=== PATIENT | male | born 1940 | race Asian ===

== ENCOUNTER 2016-08-24 14:03 | Emergency (ER) | payer SELFPAY ==
--- NOTE | 2016-08-24 15:20 | EDPHY ---
H & P Stated Complaint: Resolving edema in lower legs,hands,face since 08/22 after long flight Time Seen by Provider: 08/24/16 15:06 HPI/ROS: CHIEF COMPLAINT: Edema HISTORY OF PRESENT ILLNESS: Patient is a 68-year-old man visiting from [facility] complaining of diffuse edema. Took him for 3 days to fly here with his daughter who is in the room with him. They state that after arriving he had swelling in his legs as well as cramps. All below the knee. No knee pain. Also swelling his eyelids and hand. He does have a history of rheumatoid arthritis. He denies any history of cardiac, liver or renal disease. No fevers. No increased salt intake. He denies shortness of breath or chest pain. He and his daughter states that the swelling has practically resolved and that he has been urinating about 12 times each night and that the edema is decreasing. REVIEW OF SYSTEMS: Constitutional: denies: chills, fever, recent illness, recent injury EENTM: denies: blurred vision, double vision, nose congestion Respiratory: denies: cough, shortness of breath Cardiac: denies: chest pain, irregular heart rate, lightheadedness, palpitations Gastrointestinal/Abdominal: denies: abdominal pain, diarrhea, nausea, vomiting, blood streaked stools Genitourinary: denies: dysuria, frequency, hematuria, pain Musculoskeletal: denies: joint pain, muscle pain Skin: denies: lesions, rash, jaundice, bruising Neurological: denies: headache, numbness, paresthesia, tingling, dizziness, weakness Hematologic/Lymphatic: denies: blood clots, easy bleeding, easy bruising Immunologic/allergic: denies: HIV/AIDS, transplant EXAM: GENERAL: Well-appearing, well-nourished and in no acute distress. HEAD: Atraumatic, normocephalic. EYES: Slight swelling and edema of upper and lower eyelids. Pupils equal round and reactive to light, extraocular movements intact, sclera anicteric, conjunctiva are normal. ENT: TMs normal, nares patent, oropharynx clear without exudates. Moist mucous membranes. NECK: Normal range of motion, supple without lymphadenopathy or JVD. LUNGS: Breath sounds clear to auscultation bilaterally and equal. No wheezes rales or rhonchi. HEART: Regular rate and rhythm without murmurs, rubs or gallops. ABDOMEN: Soft, nontender, normoactive bowel sounds. No guarding, no rebound. No masses appreciated. BACK: No CVA tenderness, no spinal tenderness, step-offs or deformities EXTREMITIES: 2+ edema in lower extremities, no calf pain or tenderness. Mild swelling and fingers and hands. Normal range of motion. NEUROLOGICAL: Cranial nerves II through XII grossly intact. Normal speech, normal gait. 5/5 strength, normal movement in all extremities, normal sensation PSYCH: Normal mood, normal affect. SKIN: Warm, dry, normal turgor, no visible rashes or lesions. Source: Patient, Family Exam Limitations: No limitations - Personal History Current Tetanus Diphtheria and Acellular Pertussis (TDAP): Yes - Medical/Surgical History Hx Asthma: No Hx Chronic Respiratory Disease: No Hx Diabetes: No Hx Cardiac Disease: No Hx Renal Disease: No Hx Cirrhosis: No Hx Alcoholism: No - Family History Significant Family History: No pertinent family hx - Social History Smoking Status: Never smoked Alcohol Use: Sober Drug Use: None Constitutional: Initial Vital Signs Temperature (C) 36.9 C 08/24/16 14:10 Heart Rate 71 08/24/16 14:10 Respiratory Rate 18 08/24/16 14:10 Blood Pressure 164/96 H 08/24/16 14:10 O2 Sat (%) 98 08/24/16 14:10 O2 Delivery Mode Room Air Allergies/Adverse Reactions: No Known Allergies Allergy (Unverified 08/24/16 14:16) Home Medications: Medication Instructions Recorded NK [No Known Home Meds] 08/24/16 Medical Decision Making - Diagnostics EKG Interpretation: An EKG obtained and was read and documented in trace view. Please see trace view for full reading and report. Sinus rhythm, borderline LVH with repolarization, 1 mm in lead V2 only, Imaging Results: Imaging Impressions Chest X-Ray 08/24/16 15:17 Impression: COPD/emphysema. No source for extremity swelling identified Extremity Venous Study 08/24/16 15:18 Impression: No deep venous thrombosis bilateral legs. Findings and recommendations discussed with Emergency Department physician, KASSANDRA KEARNS at 17:19 hour, 08/24/2016. Final report concurs with initial preliminary interpretation. Imaging: Discussed imaging studies w/ square dance caller Radiologist ED Course/Re-evaluation: The the patient's EKG shows possible early signs of ventricular hypertrophy with some repolarization abnormality. He does not meet STEMI criteria and the patient is symptom free as far as chest pain or shortness of breath. 4:30 p.m. we discussed the lab and x-ray results. Patient and family are reassured. I recommended they follow up with a doctor here to have his BNP Re checked. I suspect he was simply edematous from immobility. He does not appear to have cardiomegaly on chest x-ray. He is not short of breath or having chest pain. He and his family declined further workup or testing at this time. 4:35 p.m. the patient's daughter is very involved. She is asking if we could check the patient's PSA. We will defer this to the clinic. She is also asking that we check his urinalysis. He has no dysuria Differential Diagnosis: Partial list of the Differential diagnosis considered include but were not limited to; renal disease, liver disease, cardiac disease, in mobility, increased salt intake, DVT and although unlikely based on the history and physical exam, I also considered infection, lymphoma. I discussed these differential diagnoses and the plan with the patient as well as the usual and expected course. The patient understands that the diagnosis is provisional and that in medicine we are not always correct and that further workup is often warranted. Usual and customary warnings were given. All of the patient's questions were answered. The patient was instructed to return to the emergency department should the symptoms at all worsen or return, otherwise to followup with the physician as we discussed. - Data Points Laboratory Results: Laboratory Results 08/24/16 15:30 08/24/16 15:30 08/24/16 08/24/16 08/24/16 16:40 15:30 15:30 WBC 5.51 10^3/uL 10^3/uL (3.80-9.50) RBC 3.64 10^6/uL L 10^6/uL (4.40-6.38) Hgb 11.3 g/dL L g/dL (13.7-17.5) Hct 33.4 % L % (40.0-51.0) MCV 91.8 fL fL (81.5-99.8) MCH 31.0 pg pg (27.9-34.1) MCHC 33.8 g/dL g/dL (32.4-36.7) RDW 13.6 % % (11.5-15.2) Plt Count 185 10^3/uL 10^3/uL (150-400) MPV 9.0 fL fL (8.7-11.7) Neut % (Auto) 63.2 % % (39.3-74.2) Lymph % (Auto) 21.6 % % (15.0-45.0) [place] % (Auto) 10.5 % % (4.5-13.0) Eos % (Auto) 3.8 % % (0.6-7.6) Baso % (Auto) 0.7 % % (0.3-1.7) Nucleat RBC Rel Count 0.0 % % (0.0-0.2) Absolute Neuts (auto) 3.48 10^3/uL 10^3/uL (1.70-6.50) Absolute Lymphs (auto) 1.19 10^3/uL 10^3/uL (1.00-3.00) Absolute Monos (auto) 0.58 10^3/uL 10^3/uL (0.30-0.80) Absolute Eos (auto) 0.21 10^3/uL 10^3/uL (0.03-0.40) Absolute Basos (auto) 0.04 10^3/uL 10^3/uL (0.02-0.10) Absolute Nucleated RBC 0.00 10^3/uL 10^3/uL (0-0.01) Immature Gran % 0.2 % % (0.0-1.1) Immature Gran # 0.01 10^3/uL 10^3/uL (0.00-0.10) Sodium 141 mEq/L mEq/L (134-144) Potassium 3.8 mEq/L mEq/L (3.5-5.2) Chloride 102 mEq/L mEq/L (97-110) Carbon Dioxide 27 mEq/l mEq/l (22-31) Anion Gap 12 mEq/L mEq/L (8-16) BUN 26 mg/dL H mg/dL (7-23) Creatinine 1.2 mg/dL mg/dL (0.7-1.3) Estimated GFR 59 Glucose 93 mg/dL mg/dL (70-100) Calcium 9.0 mg/dL mg/dL (8.5-10.4) Total Bilirubin 0.8 mg/dL mg/dL (0.1-1.4) Conjugated Bilirubin 0.3 mg/dL mg/dL (0.0-0.5) Unconjugated Bilirubin 0.5 mg/dL mg/dL (0.0-1.1) AST 23 IU/L IU/L (17-59) ALT 28 IU/L IU/L (21-72) Alkaline Phosphatase 80 IU/L IU/L (38-126) Troponin I < 0.012 ng/mL ng/mL (0-0.034) NT-Pro-B Natriuret Pep 481 pg/mL H pg/mL (0-450) Total Protein 7.2 g/dL g/dL (6.3-8.2) Albumin 4.3 g/dL g/dL (3.5-5.0) Urine Color PALE YELLOW Urine Appearance CLEAR Urine pH 8.0 H (5.0-7.5) Ur Specific [place] 1.009 (1.002-1.030) Urine Protein NEGATIVE (NEGATIVE) Urine Ketones NEGATIVE (NEGATIVE) Urine Blood NEGATIVE (NEGATIVE) Urine Nitrate NEGATIVE (NEGATIVE) Urine Bilirubin NEGATIVE (NEGATIVE) Urine Urobilinogen NEGATIVE EU EU (0.2-1.0) Ur Leukocyte Esterase NEGATIVE (NEGATIVE) Urine RBC 1-3 /hpf /hpf (0-3) Urine WBC 1-3 /hpf /hpf (0-3) Ur Epithelial Cells TRACE /lpf /lpf (NONE-1+) Urine Glucose 1+ H (NEGATIVE) Departure - Departure Disposition: Home, Routine, Self-Care Clinical Impression: Edema Qualifiers: Edema type: generalized Qualified Code(s): R60.1 - Generalized edema Condition: Fair Instructions: Edema (ED) Referrals: NONE *PRIMARY CARE P,. [Primary Care Provider] - As per Instructions Ramiro Slaughter MD [Medical Doctor] - As per Instructions
--- NOTE | 2016-08-24 15:28 | CPEKG ---
Heart Rate: 69 RR Interval: 870 P-R Interval: 160 QRSD Interval: 108 QT Interval: 416 QTC Interval: 446 P [place]: 70 QRS [place]: 29 T Wave [place]: 33 EKG Severity - NORMAL ECG - EKG Impression: SINUS RHYTHM Electronically Signed By: Wayne Lawler 24-Aug-2016 15:30:20
[2016-08-24 15:45] LABS: % IMMATURE GRANULYOCYTES 0.2 % (0.0-1.1); ABSOLUTE IMMATURE GRANULOCYTES 0.01 10^3/uL (0.00-0.10); ADD DIFF? NO; ADD MORPH? NO; ADD SCAN? NO; ATYPICAL LYMPHOCYTE FLAG 0 (0-99); FRAGMENT RBC FLAG 0 (0-99); HEMATOCRIT 33.4 % (40.0-51.0); HEMOGLOBIN 11.3 g/dL (13.7-17.5); LEFT SHIFT FLG 0 (0-99); LIPEMIA HEMOLYSIS FLAG 90 (0-99); MEAN CELL HEMOGLOBIN CONCENTR. 33.8 g/dL (32.4-36.7); MEAN CELL VOLUME 91.8 fL (81.5-99.8); PLATELET CLUMPS FLAG 0 (0-99); PLATELET COUNT 185 10^3/uL (150-400); RED BLOOD CELL COUNT 3.64 10^6/uL (4.40-6.38); RED CELL DISTRIBUTION WIDTH 13.6 % (11.5-15.2)
[2016-08-24 15:55] LABS: ALANINE AMINOTRANSFERASE 28 IU/L (21-72); ALBUMIN 4.3 g/dL (3.5-5.0); ALKALINE PHOSPHATASE 80 IU/L (38-126); ANION GAP 12 mEq/L (8-16); ASPARTATE AMINOTRANSFERASE 23 IU/L (17-59); BILIRUBIN,TOTAL 0.8 mg/dL (0.1-1.4); BILIRUBIN-CONJUGATED 0.3 mg/dL (0.0-0.5); BILIRUBIN-UNCONJUGATED 0.5 mg/dL (0.0-1.1); CARBON DIOXIDE 27 mEq/l (22-31); CHLORIDE 102 mEq/L (97-110); CREATININE 1.2 mg/dL (0.7-1.3); GLOMERULAR FILTRATION RATE 59; GLUCOSE 93 mg/dL (70-100); POTASSIUM 3.8 mEq/L (3.5-5.2); SODIUM 141 mEq/L (134-144); TOTAL PROTEIN 7.2 g/dL (6.3-8.2)
[2016-08-24 16:07] LABS: TROPONIN I < 0.012 ng/mL (0-0.034)
[2016-08-24 16:50] LABS: COLOR PALE YELLOW; LEUKOCYTE ESTERASE,URINE NEGATIVE (NEGATIVE); NITRITE,URINE NEGATIVE (NEGATIVE)
[2016-08-24 17:51] VITALS: BP 154/90; PULSE 74; RESP 16; TEMP 98.1; O2SAT 96
== END 2016-08-24 17:58 | disposition home or self-care (01) ==
LOC: EEVIPCON 14:03
DX: R60.1 Generalized edema (principal)

== ENCOUNTER → 2016-09-28 | Outpatient (CLI) | payer OTHER | LOC: BMCIMAGING 11:15 | PROVIDERS: ATTEND Internal Medicine | DX: M85.80 Other specified disorders of bone density and structure, unspecified site (principal); M06.9 Rheumatoid arthritis, unspecified ==

== ENCOUNTER → 2016-11-02 | Outpatient (CLI) | payer OTHER ==
[~2016-11-02] MED LIST: GADOBUTROL 10 ML VIAL IVP ONE
== END ==
LOC: FIMAGING 19:50
PROVIDERS: ATTEND Psychiatry & Neurology Neurology
DX: R41.3 Other amnesia (principal); G31.9 Degenerative disease of nervous system, unspecified
CPT/HCPCS: A9585

== ENCOUNTER 2016-11-16 12:47 | Inpatient (IN) | payer SELFPAY ==
[~2016-11-16 12:47] MED LIST changes: +ASPIRIN EC 325 MG TAB PO ONE; +DIAZEPAM 5 MG TAB PO ONE; +FAMOTIDINE 20 MG TAB PO ONE; -GADOBUTROL 10 ML VIAL IVP ONE; +NS 1,000 ML IV ONE; +NS 1,000 ML IV SCH; +diphenhydrAMINE 25 MG CAP PO ONE
[2016-11-16 14:02] LABS: % IMMATURE GRANULYOCYTES 0.2 % (0.0-1.1); ABSOLUTE IMMATURE GRANULOCYTES 0.01 10^3/uL (0.00-0.10); ADD DIFF? NO; ADD MORPH? NO; ADD SCAN? NO; ATYPICAL LYMPHOCYTE FLAG 0 (0-99); FRAGMENT RBC FLAG 0 (0-99); HEMATOCRIT 38.8 % (40.0-51.0); HEMOGLOBIN 13.1 g/dL (13.7-17.5); LEFT SHIFT FLG 0 (0-99); LIPEMIA HEMOLYSIS FLAG 90 (0-99); MEAN CELL HEMOGLOBIN 31.3 pg (27.9-34.1); MEAN CELL HEMOGLOBIN CONCENTR. 33.8 g/dL (32.4-36.7); MEAN CELL VOLUME 92.6 fL (81.5-99.8); MEAN PLATELET VOLUME 9.1 fL (8.7-11.7); PLATELET CLUMPS FLAG 0 (0-99); PLATELET COUNT 186 10^3/uL (150-400); RED BLOOD CELL COUNT 4.19 10^6/uL (4.40-6.38); RED CELL DISTRIBUTION WIDTH 13.2 % (11.5-15.2)
[2016-11-16] MEDS ORDERED: diphenhydrAMINE 25 MG CAP PO ONE (14:02)
[2016-11-16] MEDS ORDERED: DIAZEPAM 5 MG TAB ONE (14:02)
[2016-11-16] MEDS ORDERED: FAMOTIDINE 20 MG TAB ONE (14:02)
[2016-11-16] MEDS ORDERED: ASPIRIN EC 325 MG TAB PO ONE (14:02)
[2016-11-16 14:19] LABS: INR 1.05 (0.83-1.16); PROTIME(PATIENT) 13.6 SEC (12.0-15.0)
[2016-11-16 14:24] LABS: ANION GAP 15 mEq/L (8-16); CALCIUM 9.3 mg/dL (8.5-10.4); CARBON DIOXIDE 25 mEq/l (22-31); CHLORIDE 101 mEq/L (97-110); CHOLESTEROL 240 mg/dL (140-220); CHOLESTEROL/HDL RATIO 3.48 RATIO (1.00-4.97); CREATININE 1.8 mg/dL (0.7-1.3); GLOMERULAR FILTRATION RATE 37; GLUCOSE 95 mg/dL (70-100); HIGH DENSITY LIPOPROTEIN 69 mg/dL (40-65); LDL/HDL RATIO 2.17 RATIO (1.00-3.64); LOW DENSITY LIPOPROTEIN 150 mg/dL (80-100); MAGNESIUM 2.4 mg/dL (1.6-2.3); NON-HIGH DENSITY LIPOPROTEIN 171 mg/dL (90-129); POTASSIUM 3.8 mEq/L (3.5-5.2); SODIUM 141 mEq/L (134-144); TRIGLYCERIDE 107 mg/dL (40-150); VERY LOW DENSITY LIPOPROTEINS 21 mg/dL (8-25)
[2016-11-16] MEDS ORDERED: ONDANSETRON DISINTEGRATING 4 MG TAB PO PRN (15:42)
[2016-11-16] MEDS ORDERED: ACETAMINOPHEN 325 MG TAB PO PRN (15:42)
[2016-11-16] MEDS ORDERED: ALBUTEROL 3 ML DEYVIAL IH PRN (15:42)
[2016-11-16] MEDS ORDERED: ONDANSETRON 4 MG/2 ML VIAL IVP PRN (15:42)
[2016-11-16] MEDS ORDERED: RISEDRONATE SODIUM 150 MG PO SCH (15:45)
--- NOTE | 2016-11-16 15:53 | PDGENHP ---
History and Physical - Chief Complaint chest pain - History of Present Illness This is a 76 yo male who was seen by Cardiology in their office earlier today and had a positive treadmill stress test. He was referred for to the cardiovascular lab for cath but due to scheduling reasons the cath is being held until likely tomorrow. He had chest pain during the stress test but does not currently have any now. He has plans to return to [facility] on Sunday which is where he resided. He denies palpitations, chest pain, leg swelling, jaw pain or other. EKG obtained today reveals NSR, LBBB, and no acute ischemic changes. A TTE is c/w a preserved LVEF and no wall abnormalities. He has had progressive worsening Cr since August of this year during which his Cr .was 1.2. It has been 1.8 for the last several weeks. He has been seeing Dr. Esau Rahman with [facility]. He has had negative LE dopplers. he does not have a hx of HTN, DM, and is not a tobacco user PMH: CAD, pedal edema, anemia of chronic disease, questionable renal failure, RA , HLD, Osteopenia Soc: lives in [facility], previously worked at [employer] in [place] FmHx: + CV disease mother History Information - Allergies/Home Medication List Allergies/Adverse Reactions: No Known Allergies Allergy (Unverified 08/24/16 14:16) Home Medications: Calcium Carbonate [Oyster Shell Calcium 500 mg (*)] 500 mg PO DAILY 11/16/16 [ Last Taken Unknown] Donepezil HCl [Aricept 5 MG (*)] 5 mg PO HS 11/16/16 [Last Taken Unknown] Fesoterodine Fumarate [Toviaz (*)] 4 mg PO HS 11/16/16 [Last Taken 11/16/16] Herbals/Supplements -Info Only 1 ea PO DAILY 11/16/16 [Last Taken Unknown] Multivitamins [Multivitamin (*)] 1 each PO DAILY 11/16/16 [Last Taken Unknown] Risedronate Sodium [Actonel] 150 mg PO Q30D 11/16/16 [Last Taken 10/21/16] Terbinafine HCl [LamISIL 250 MG (*)] 250 mg PO DAILY 11/16/16 [Last Taken ] I have personally reviewed and updated: family history, medical history, social history - Social History Smoking Status: Never smoked Review of Systems ROS: 10pt was reviewed & negative except for what was stated in HPI & below Lab Data & Imaging Review 11/16/16 13:40 11/16/16 13:40 WBC 6.25 10^3/uL (3.80-9.50) 11/16/16 13:40 RBC 4.19 10^6/uL (4.40-6.38) L 11/16/16 13:40 Hgb 13.1 g/dL (13.7-17.5) L 11/16/16 13:40 Hct 38.8 % (40.0-51.0) L 11/16/16 13:40 MCV 92.6 fL (81.5-99.8) 11/16/16 13:40 MCH 31.3 pg (27.9-34.1) 11/16/16 13:40 MCHC 33.8 g/dL (32.4-36.7) 11/16/16 13:40 RDW 13.2 % (11.5-15.2) 11/16/16 13:40 Plt Count 186 10^3/uL (150-400) 11/16/16 13:40 MPV 9.1 fL (8.7-11.7) 11/16/16 13:40 Neut % (Auto) 70.1 % (39.3-74.2) 11/16/16 13:40 Lymph % (Auto) 20.0 % (15.0-45.0) 11/16/16 13:40 [place] % (Auto) 8.2 % (4.5-13.0) 11/16/16 13:40 Eos % (Auto) 1.0 % (0.6-7.6) 11/16/16 13:40 Baso % (Auto) 0.5 % (0.3-1.7) 11/16/16 13:40 Nucleat RBC Rel Count 0.0 % (0.0-0.2) 11/16/16 13:40 Absolute Neuts (auto) 4.39 10^3/uL (1.70-6.50) 11/16/16 13:40 Absolute Lymphs (auto) 1.25 10^3/uL (1.00-3.00) 11/16/16 13:40 Absolute Monos (auto) 0.51 10^3/uL (0.30-0.80) 11/16/16 13:40 Absolute Eos (auto) 0.06 10^3/uL (0.03-0.40) 11/16/16 13:40 Absolute Basos (auto) 0.03 10^3/uL (0.02-0.10) 11/16/16 13:40 Absolute Nucleated RBC 0.00 10^3/uL (0-0.01) 11/16/16 13:40 Immature Gran % 0.2 % (0.0-1.1) 11/16/16 13:40 Immature Gran # 0.01 10^3/uL (0.00-0.10) 11/16/16 13:40 PT 13.6 SEC (12.0-15.0) 11/16/16 13:40 INR 1.05 (0.83-1.16) 11/16/16 13:40 Sodium 141 mEq/L (134-144) 11/16/16 13:40 Potassium 3.8 mEq/L (3.5-5.2) 11/16/16 13:40 Chloride 101 mEq/L (97-110) 11/16/16 13:40 Carbon Dioxide 25 mEq/l (22-31) 11/16/16 13:40 Anion Gap 15 mEq/L (8-16) 11/16/16 13:40 BUN 33 mg/dL (7-23) H 11/16/16 13:40 Creatinine 1.8 mg/dL (0.7-1.3) H 11/16/16 13:40 Estimated GFR 37 11/16/16 13:40 Glucose 95 mg/dL (70-100) 11/16/16 13:40 Calcium 9.3 mg/dL (8.5-10.4) 11/16/16 13:40 Magnesium 2.4 mg/dL (1.6-2.3) H 11/16/16 13:40 Triglycerides 107 mg/dL (40-150) 11/16/16 13:40 Cholesterol 240 mg/dL (140-220) H 11/16/16 13:40 Cholesterol Risk Factr 0.6 (0.2-1.0) 11/16/16 13:40 LDL Cholesterol, Calc 150 mg/dL (80-100) H 11/16/16 13:40 LDL Risk Factor 0.8 (0.2-1.0) 11/16/16 13:40 VLDL Cholesterol 21 mg/dL (8-25) 11/16/16 13:40 Non-HDL Cholesterol 171 mg/dL (90-129) H 11/16/16 13:40 HDL Cholesterol 69 mg/dL (40-65) H 11/16/16 13:40 LDL/HDL Ratio 2.17 RATIO (1.00-3.64) 11/16/16 13:40 Cholesterol/HDL Ratio 3.48 RATIO (1.00-4.97) 11/16/16 13:40 Assessment & Plan Assessment: #Angina, positive treadmill test in a pt with known hx of CAD #Acute on CRF, baseline appears to be 1.2 but there is mention in the medical record that he has chronic disease #HLD, not on a statin #ELIANA Plan: -Admit -Cards to follow, will likely due cardiac cath tomorrow -cont home meds -he is receiving one liter of NS now, will recheck labs in a.m -will hold off on getting another formal renal consult for now pending clinical course -Statin per Cards -Telemetry -EKG and TTE already checked -Will check troponin -SCD's
[2016-11-16] MEDS ORDERED: Risedronate Sodium [Actonel] 150 MG PO SCH (16:00)
--- NOTE | 2016-11-16 21:38 | CPEKG ---
Heart Rate: 61 RR Interval: 984 P-R Interval: 160 QRSD Interval: 120 QT Interval: 440 QTC Interval: 444 P [place]: 74 QRS [place]: 72 T Wave [place]: 67 EKG Severity - ABNORMAL ECG - EKG Impression: SINUS RHYTHM EKG Impression: NONSPECIFIC INTRAVENTRICULAR CONDUCTION DELAY Electronically Signed By: Darryl Love 17-Nov-2016 10:04:49
[2016-11-16] MEDS: FESOTERODINE FUMARATE 4 MG TAB.ER PO SCH (22:39)
[2016-11-17] MEDS ORDERED: NS 1,000 ML IV ONE ×2 (02:00→07:00)
[2016-11-17] MEDS ORDERED: NS BOLUS 500 ML (Wide open) IV ONE (02:00)
[2016-11-17] MEDS: DONEPEZIL HCL 5 MG TAB PO SCH ×2 (02:17→20:17)
[2016-11-17 05:06] LABS: % IMMATURE GRANULYOCYTES 0.2 % (0.0-1.1); ABSOLUTE IMMATURE GRANULOCYTES 0.01 10^3/uL (0.00-0.10); ADD DIFF? NO; ADD MORPH? NO; ADD SCAN? NO; ATYPICAL LYMPHOCYTE FLAG 0 (0-99); FRAGMENT RBC FLAG 0 (0-99); HEMATOCRIT 33.2 % (40.0-51.0); HEMOGLOBIN 11.1 g/dL (13.7-17.5); LEFT SHIFT FLG 0 (0-99); LIPEMIA HEMOLYSIS FLAG 80 (0-99); MEAN CELL HEMOGLOBIN 31.1 pg (27.9-34.1); MEAN CELL HEMOGLOBIN CONCENTR. 33.4 g/dL (32.4-36.7); MEAN PLATELET VOLUME 9.3 fL (8.7-11.7); PLATELET CLUMPS FLAG 0 (0-99); PLATELET COUNT 167 10^3/uL (150-400); RED BLOOD CELL COUNT 3.57 10^6/uL (4.40-6.38); RED CELL DISTRIBUTION WIDTH 13.2 % (11.5-15.2)
[2016-11-17 05:40] LABS: ANION GAP 9 mEq/L (8-16); CARBON DIOXIDE 24 mEq/l (22-31); CHLORIDE 110 mEq/L (97-110); CREATININE 1.7 mg/dL (0.7-1.3); GLOMERULAR FILTRATION RATE 39; GLUCOSE 88 mg/dL (70-100); MAGNESIUM 2.3 mg/dL (1.6-2.3); POTASSIUM 3.7 mEq/L (3.5-5.2); SODIUM 143 mEq/L (134-144)
[2016-11-17] MEDS ORDERED: FAMOTIDINE 20 MG TAB PO ONE (07:00)
[2016-11-17] MEDS ORDERED: diphenhydrAMINE 25 MG CAP PO ONE ×2 (07:00→08:46)
[2016-11-17] MEDS ORDERED: DIAZEPAM 5 MG TAB PO ONE (07:00)
[2016-11-17] MEDS ORDERED: ASPIRIN EC 325 MG TAB PO ONE ×2 (07:00→08:47)
[2016-11-17] MEDS ORDERED: HEPARIN 10,000 UNIT/10 ML MDV ONE (08:26)
[2016-11-17] MEDS ORDERED: LIDOCAINE 1% 300 MG/30 ML SDV ONE (08:26)
[2016-11-17] MEDS ORDERED: fentaNYL 100 MCG/2 ML INJ ONE ×2 (08:26→10:09)
[2016-11-17] MEDS ORDERED: VERAPAMIL 5 MG/2 ML VIAL ONE (08:26)
[2016-11-17] MEDS ORDERED: MIDAZOLAM 2 MG/2 ML VIAL ONE ×2 (08:26→10:09)
[2016-11-17] MEDS ORDERED: IOPAMIDOL (ISOVUE-370) 150 ML BTL IV ONE ×2 (08:27→09:50)
[2016-11-17] MEDS ORDERED: FAMOTIDINE 20 MG TAB ONE (08:47)
[2016-11-17] MEDS ORDERED: DIAZEPAM 5 MG TAB ONE (08:47)
[2016-11-17] MEDS ORDERED: TERBINAFINE HCL 250 MG TAB PO SCH (09:00)
[2016-11-17] MEDS ORDERED: MULTIVITAMINS 1 EACH TAB PO SCH (09:00)
[2016-11-17] MEDS ORDERED: Herbals/Supplements -Info Only PO SCH (09:00)
[2016-11-17] MEDS ORDERED: CALCIUM CARBONATE 500 MG TAB PO SCH (09:00)
[2016-11-17] MEDS ORDERED: NITROGLYCERIN/D5W 50 MG/250 ML BOTTLE IV ONE (09:12)
[2016-11-17] MEDS ORDERED: PRASUGREL HCL 10 MG TAB ONE (10:33)
[2016-11-17] MEDS ORDERED: PRASUGREL HCL 10 MG TAB PO ONE (10:41)
[2016-11-17] MEDS ORDERED: TEMAZEPAM 15 MG CAP PO PRN (10:41)
[2016-11-17] MEDS ORDERED: ATROPINE SULFATE 1 MG/10 ML SYR IVP PRN (10:41)
[2016-11-17] MEDS ORDERED: LORazepam 2 MG/ML INJ IVP PRN (10:41)
[2016-11-17] MEDS ORDERED: ONDANSETRON 4 MG/2 ML VIAL IVP PRN (10:41)
[2016-11-17] MEDS ORDERED: NITROGLYCERIN 0.4 MG BTL SL PRN (10:41)
--- NOTE | 2016-11-17 10:54 | CPEKG ---
Heart Rate: 55 RR Interval: 1091 P-R Interval: 160 QRSD Interval: 114 QT Interval: 484 QTC Interval: 463 P [place]: 74 QRS [place]: 55 T Wave [place]: 38 EKG Severity - ABNORMAL ECG - EKG Impression: SINUS RHYTHM EKG Impression: NONSPECIFIC INTRAVENTRICULAR CONDUCTION DELAY Electronically Signed By: Darryl Love 17-Nov-2016 14:12:40
--- NOTE | 2016-11-17 10:58 | PDDXCAT ---
Diagnostic Cath Note - . 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 Indication: CCC Class III and IV angina on medical treatment High-risk criteria on non-invasive testing: high-risk treadmill score (score<=- 11) - Procedure Access: right wrist Procedure: left heart catheterization, coronary angiography - Materials Left Heart Cath size: 5F Left Heart Cath materials: pigtail, other (Site Seer 4) - Findings-Left Heart Catheterization LM: Unobstructed LAD: 99% Mid vessel occlusion, distal 80% LCX: OM2 Occluded RCA: Dominant: luminal irregularities Ramus: 99% proximal occlusion EDP: 8 mmHg Complications: none Estimated blood loss: <50ml Closure method: TR Band Assessment: 1. Severe LAD/Ramus/OM2 occlusive CAD. 2. Low filling pressures Plan: PCI Intervention: Procedure: 1. PCI of the LAD with 2.75 by 20 Synergy and 3.0 by 38 Synergy Drug eluting stent. 2. PCI of chronic occlusion of OM2 with 2.5 by 12 Synergy stent. 3. PCI of the Ramus with 2.5 by 16 mm Synergy Stent After reviewing diagnostic angiograms it was elected to proceed with PCI. Patient was fully anti coagulated with heparin. Therapeutic ACT was confirmed. A 6 croatian sheath was exchanged into the right radial artery. A 6french EBU 3.75 guide was used to intubate the left main. Guiding shots were performed. Using a 0.015 Lacrosse Coach 50 wire the LAD stenosis was crossed. Pre-dilation was performed times 2 with a 2.0 by 16 mm balloon. Due to calcification. Stent would not cross. Pre-dilatation was repeated with a 3.0 by 16 mm balloon. Distal stent placement with a 2.75 by 20 mm Synergy was performed with a single inflation. A 3.0 by 38 mm Stent was placed proximally with a single inflation. Post stent dilatation was performed with a 4.0 by 16 mm Non-compliant balloon. There was Heaven grade 3 flow. Our attention was then turned to the OM2 stenosis. Attempts at crossing with original wire and balloon was attempted but failed. A new 0.014 Lacrosse Coach 50 with a new 2.0 balloon was used to cross the occlusion. Predilatation was performed with a 1.25 mm balloon. Antegrade flow was re-established. A 2.5 by 16 mm Synergy was placed proximally and deployed. Ther was HEAVEN 3 flow. Our attention was then turned to the RAMUS. Using the 0.014 Lacrosse Coach 50 the ramus stenosis was crossed. It was pre-dilated with a 2.0 balloon. A 2.5 by 16 mm Synergy was placed proximally with a single inflation. Final angiograms revealed [place] grade 3 flow with marked improvement. Conclusion: Successful PCI and stenting of the LAD, OM2 and ramus. Plan: Renal protection level hydration over night. DAPT for one year Aggressive secondary prevention. Patient Problems: Problems Problem Status Onset Status post insertion of drug-eluting stent into left anterior descending (LAD) artery Acute CAD (coronary artery disease) Acute Angina effort Acute
[2016-11-17] MEDS ORDERED: ATORVASTATIN CALCIUM 40 MG TAB PO SCH (15:30)
--- NOTE | 2016-11-17 15:56 | HOSPPROG ---
Hospitalist Progress Note Assessment/Plan: assessment: 76-year-old male presents with stable angina secondary to multivessel coronary artery disease and high risk lesions requiring PCI Plan: 1. coronary artery disease. Acute obstruction resulting in angina, requiring percutaneous intervention on 3 vessels, namely left anterior descending, OM 2, ramus -drug-eluting stents placed in all 3 -discussed with Dr. sloan, recommends statin, beta-tyrone, dual anti-platelet therapy x1 year -right upper extremity lifting restrictions -recommend he follow up with Dr. Miller upon returning to [place] in approximately 3 months 2. Chronic kidney disease stage 3. Suspected, baseline creatinine previously 1.2, currently 1.6, without any presenting symptoms of acute kidney injury -suspect creatinine is at or near his baseline -he is high risk for contrast induced nephropathy given today's PCI procedure, requires ongoing IV fluids to mitigate the risk of contrast induced nephropathy -require upgraded to inpatient admission status given the anticipated length stay is greater than 48 hours for reasonable medical necessity due to ongoing IV fluids in this high risk patient for worsening renal function required cardiac catheterization today Counseled the patient and his daughter extensively about medications, follow-up , recommendations regarding tomorrow's travel, as well as outpatient cardiology follow-up while in [facility]. Subjective: Patient not having any chest pain or shortness of breath, resting comfortably Objective: Vital Signs Temp Pulse Resp BP Pulse Ox 36.3 C 53 L 20 155/90 H 98 11/17/16 13:55 11/17/16 13:55 11/17/16 13:55 11/17/16 13:55 11/17/16 13:55 Laboratory Results 11/17/16 03:58 11/17/16 03:58 11/16/16 11/17/16 11/18/16 05:59 05:59 05:59 Intake Total 825 1340 Output Total 1100 1425 Balance -275 -85 PT 13.6 SEC (12.0-15.0) 11/16/16 13:40 INR 1.05 (0.83-1.16) 11/16/16 13:40 - Time Spent With Patient Time Spent with Patient: greater than 35 minutes Time Spent with Patient: Greater than 35 minutes spent on this patients care, greater than 50% of time spent counseling, educating, and coordinating care regarding the above mentioned plan. - Physical Exam Constitutional: no apparent distress, appears nourished, not in pain Cardiovascular: regular rate and rhythym, no murmur, rub, or gallop Respiratory: no respiratory distress, no rales or rhonchi, clear to auscultation , other ( poor inspiratory effort) Skin: other ( no erythema or ecchymosis right wrist) ICD10 Worksheet Patient Problems: Problems Problem Status Onset Angina effort Acute CAD (coronary artery disease) Acute Status post insertion of drug-eluting stent into left anterior descending (LAD) artery Acute
--- NOTE | 2016-11-17 16:16 | PDDCSUM ---
Discharge Summary Discharge Summary: DISCHARGE SUMMARY FOLLOW-UP ITEMS: This is an official referral for outpatient cardiology consultation, for the indication of coronary artery disease and the medical history provided below. DATE OF ADMISSION: 11/16/2016 DATE OF DISCHARGE: 11/18/2016 DISCHARGE DIAGNOSES: 1. Stable angina 2. Coronary artery disease 3. Chronic kidney disease stage 3 CONSULTATIONS: Cardiology PROCEDURES / IMAGING: Percutaneous intervention with drug-eluting stents placed to the LAD, om2, ramus CHIEF COMPLAINT: Exertional chest pain or shortness of breath SUBJECTIVE: Patient is feeling well at time of discharge PHYSICAL EXAM ON DISCHARGE: Systolic blood pressure 155, heart rate 53, satting well on room air, heart rate is regular, regular rhythm, shallow inspirations, no bleeding at the wrist cath site, physical exam performed 11/17 at 4:00 p.m. LABS ON DISCHARGE: Creatinine 1.7, potassium 3.7, hemoglobin 11.1, LDL 150, renal ultrasound demonstrating normal size kidneys HOSPITAL COURSE BY PROBLEM: 1. Stable angina and obstructive coronary artery disease. The patient has been experiencing exertional chest pain shortness of breath and had an abnormal stress test in the outpatient setting. Given his high risk factors including chronic kidney disease and hypertension, urgent cardiac catheterization was performed. Echocardiogram demonstrated preserved ejection fraction, and PCI demonstrated end-diastolic filling pressure of 8. The source of his chest discomfort is most likely obstructive coronary artery disease and he was found to have 99% lesions in the LAD, om 2, ramus. Dr. Miller placed 3 drug- eluting stents, 1 in each of these vessels. Given the high risk nature of these lesions, he will be monitored overnight to ensure no cardiac arrhythmia. The patient will require dual anti-platelet therapy for 1 year as well as addition of beta-tyrone and statin therapy. He will also have as needed sublingual nitroglycerin tablets if he experiences any exertional angina in the future. The patient will require outpatient Cardiology consultation while he is in [place] to ensure that he is receiving optimal management. Of note, the patient's weight is 59.8 kg and Effient dosing is recommended to be reduced to 5 mg daily when weights are stably below 60 kg. Since the patient is right at this threshold and has a freshly placed stent, we are recommending that he receive 10 mg daily and then have a reassessment in the outpatient setting, with his weight reassessed at that time 2. Chronic kidney disease stage 3. Most recent creatinine level in our system is 1.2, and his presenting serum creatinine level is 1.8. He is not demonstrating any signs of hypo or hypervolemia. We suspect that he has an element of stage 3 chronic kidney disease and he is followed by [facility] in [facility]. We would recommend that he follow up with his primary correctional lieutenant upon returning to [place] from [facility]. Given that the patient was high risk for contrast induced nephropathy with the contrast load he received during percutaneous intervention, required ongoing IV fluids for renal protection following his cardiac catheterization. Because required IV fluids, he required extended hospitalization and met all the requirements for inpatient admission status. DISCHARGE MEDICATIONS: Please see official discharge medication reconciliation sheet in chart , Effient 10 mg daily, aspirin 325 mg daily, atorvastatin 40 mg daily, metoprolol tartrate 25 mg twice daily, sublingual nitroglycerin as needed for chest pain. DISCHARGE INSTRUCTIONS: Outpatient Cardiology consultation recommended while in [facility], follow up with primary providers upon returning to [place]. This document is being preemptively placed to facilitate safe patient follow-up and transfer of critical clinical information to the patient's outpatient providers in [facility]. He will be discharging early tomorrow morning and addendum with any additional events will be provided if necessary.
[2016-11-17] MEDS: FESOTERODINE FUMARATE 4 MG TAB.ER PO SCH (20:15)
[2016-11-17] MEDS: NS 1,000 ML IV SCH ×2 (20:18→21:22)
[2016-11-18 03:49] LABS: % IMMATURE GRANULYOCYTES 0.1 % (0.0-1.1); ABSOLUTE IMMATURE GRANULOCYTES 0.01 10^3/uL (0.00-0.10); ADD DIFF? NO; ADD MORPH? NO; ADD SCAN? NO; ATYPICAL LYMPHOCYTE FLAG 10 (0-99); FRAGMENT RBC FLAG 0 (0-99); LEFT SHIFT FLG 0 (0-99); LIPEMIA HEMOLYSIS FLAG 80 (0-99); MEAN CELL HEMOGLOBIN 31.1 pg (27.9-34.1); MEAN CELL HEMOGLOBIN CONCENTR. 33.3 g/dL (32.4-36.7); MEAN CELL VOLUME 93.2 fL (81.5-99.8); PLATELET CLUMPS FLAG 10 (0-99); PLATELET COUNT 152 10^3/uL (150-400); RED BLOOD CELL COUNT 3.54 10^6/uL (4.40-6.38); RED CELL DISTRIBUTION WIDTH 13.1 % (11.5-15.2)
[2016-11-18 04:01] LABS: ALBUMIN 3.3 g/dL (3.5-5.0); ANION GAP 8 mEq/L (8-16); ASPARTATE AMINOTRANSFERASE 36 IU/L (17-59); BILIRUBIN,TOTAL 0.4 mg/dL (0.1-1.4); CALCIUM 7.6 mg/dL (8.5-10.4); CARBON DIOXIDE 22 mEq/l (22-31); CHLORIDE 112 mEq/L (97-110); CREATININE 1.4 mg/dL (0.7-1.3); GLOMERULAR FILTRATION RATE 49; GLUCOSE 93 mg/dL (70-100); LACTATE DEHYDROGENASE 428 IU/L (313-618); MAGNESIUM 2.2 mg/dL (1.6-2.3); POTASSIUM 4.3 mEq/L (3.5-5.2); SODIUM 142 mEq/L (134-144)
--- NOTE | 2016-11-18 06:38 | PDCARPN ---
Cardiology Progress Note Chief Complaint: cc: Chest pain on admission Assessment/Plan: Assessment: 1. CAD 2. SP PCI with FLETCHER to LAD, OM and Ramus 3. Normal LVEF on echo in my office this week Plan: 1. OK to discharge today, review radial artery site precautions 2. Dual Antiplatelet therapy x one year. Aspirin 325 mg and Effient 10 mg daily 3. Atorvastatin 40 mg daily 4. Pt to be seen by Clinical Mental Health Counselor when arrives in [facility] 5. Follow up with me when he returns to [place] in 3 months 11/18/16 06:39 Subjective: Mr Cain is a pleasant 76 year old gentleman seen in my office on , November 16, 2016 with complaints of progressive, exertional sub sternal chest pain. He underwent ETT in our office. He developed 4/10 chest pain and ECG changes on Stage 2 of Twan protocol. He was subsequently brought to [facility] for Left Heart Catheterization. In the setting of CRI, renal protection protocol was implemented. LHC yesterday with Dr. Miller demonstrated 3 vessel CAD and undewent successful PCI to LAD, OM and Ramus with FLETCHER. Tolerate procedure well. Cr has decreased from admission and is now 1.4 this AM. Mr. Castro is feeling well. He has no complaints this AM. Radial artery site with mild ecchymosis, pulse in tact. Vitals and labwork are stable. No events on telemetry. He is planning on flying to [employer] today with his daughter. Reviewed/Discussed With: multidisciplinary team Time Spent With Patient: 25 minutes Objective: Vital Signs (8 Hrs) Temp Pulse Resp BP Pulse Ox 11/17/16 23:19 36.7 C 73 18 135/100 H 98 Intake/Output (24 Hrs) 11/17/16 11/18/16 11/19/16 05:59 05:59 05:59 Intake Total 825 2990 Output Total 1100 2675 Balance -275 315 Intake: Oral (ml) 500 390 IV Intake (ml) 325 650 IV Infused (ml) 1950 Ns 1,000 ml @ Per 1950 Protocol IV CONT LEONARDO Rx#: [id number] Output: Urine (ml) 1100 2675 Incontinence 1425 Toilet 600 Urinal 500 1250 Other: Weight 59.8 kg Intake Quantity Yes Sufficient Number of Voids Incontinence 1 1 Toilet 4 Urinal 3 Result Diagrams: 11/18/16 03:42 11/18/16 03:42 Cardiac Labs: Cardiac Lab Results (72 Hrs) 11/16/16 11/16/16 20:35 13:40 Troponin I 0.050 H 0.033 - Physical Exam Constitutional: WDWN, healthy appearing Ears, Nose, Mouth, Throat: moist mucous membranes Cardiovascular: regular rate and rhythm, no murmurs, no rubs, no gallops Peripheral Pulses: 2+: carotid (R), carotid (L) Respiratory: clear to auscultate bilat Gastrointestinal: normoactive bowel sounds Skin: no rashes Musculoskeletal: no muscular tenderness Neurologic: AAOx3, CN II-XII grossly intact Psychiatric: cooperative, interactive, following commands (Right radial artery pulse: 2+. mild ecchymosis. ) ICD10 Worksheet Patient Problems: Problems Problem Status Onset Angina effort Acute CAD (coronary artery disease) Acute Status post insertion of drug-eluting stent into left anterior descending (LAD) artery Acute
[2016-11-18 07:05] VITALS: BP 118/75; PULSE 72; RESP 16; TEMP 98.3; O2SAT 97
[2016-11-18] MEDS ORDERED: PRASUGREL HCL 10 MG TAB PO SCH (09:00)
[2016-11-18] MEDS ORDERED: ASPIRIN EC 325 MG TAB PO SCH (09:00)
== END 2016-11-18 07:30 | disposition home or self-care (01) | DRG 247 ==
LOC: FCATH 12:47 → F2W 15:41 → OBSVTOIN 11-17 15:54
PROVIDERS: ADMIT Family Medicine; ATTEND Internal Medicine
DX: I25.118 Atherosclerotic heart disease of native coronary artery with other forms of angina pectoris (principal); I12.9 Hypertensive chronic kidney disease with stage 1 through stage 4 chronic kidney disease, or unspecified chronic kidney disease; N18.3 Chronic kidney disease, stage 3 (moderate); E78.5 Hyperlipidemia, unspecified; G47.33 Obstructive sleep apnea (adult) (pediatric); M85.89 Other specified disorders of bone density and structure, multiple sites; M06.9 Rheumatoid arthritis, unspecified
CPT/HCPCS: C1725; C1769; C1874; C1887; C9600; C9607; G0378; J1644; J2250; J3010; Q9967